=== PATIENT | female | born 1950 | race Caucasian/White ===

== ENCOUNTER → 2017-03-17 | Outpatient (CLI) | payer MEDICARE, BC ==
[~2017-03-17] MED LIST: CLARITIN-D 5 MG1 T12 PO; LIPITOR10 MG PO; MICROZIDE12.5 M1 PO; TOPROL XL25 MG PO; VANQUISH PO
== END | disposition home or self-care (01) ==
LOC: MAMMO 12:40
DX: Z12.31 Encounter for screening mammogram for malignant neoplasm of breast (principal)

== ENCOUNTER → 2017-07-14 | Outpatient (CLI) | payer MEDICARE, BC ==
[2017-07-14 07:47] LABS: BASO % 0.5 % (0.0-1.0); EOS # 0.5 10*3/uL (0.0-0.4); EOS % 7.8 % (1.0-4.0); HEMATOCRIT 40.1 % (37.0-47.0); HEMOGLOBIN 13.5 g/dl (12.0-16.0); LYMPH # 1.8 10*3/uL (1.3-4.4); LYMPH % 27.3 % (27.0-41.0); MEAN CELL VOLUME 94.6 fl (81.0-99.0); MEAN CORPUSCULAR HGB 31.8 pg (27.0-31.0); MEAN CORPUSCULAR HGB CONC 33.7 g/dl (33.0-37.0); MONO # 0.7 10*3/uL (0.1-1.0); MONO % 10.2 % (3.0-9.0); NEUT # 3.6 10*3/uL (2.3-7.9); PLATELET COUNT AUTOMATED 274 10*3/uL (130-400); RED BLOOD COUNT 4.24 10*6/uL (4.10-5.10); RED CELL DISTRI WIDTH 12.4 % (0-14.5); WHITE BLOOD COUNT 6.6 10*3/uL (4.8-10.8)
[2017-07-14 08:15] LABS: ALBUMIN 3.7 gm/dl (3.1-4.5); ALKALINE PHOSPHATASE 87 U/L (45-117); BUN 14 mg/dl (7-24); CHLORIDE 105 mmol/L (98-107); CHOLESTEROL 148 mg/dL (<200); HDL CHOLESTEROL 68 mg/dl (40-60); LDL CHOLESTEROL 63 mg/dL (9-159); POTASSIUM 3.5 mmol/L (3.5-5.1); SGOT/AST 19 IU/L (3-35); SGPT/ALT 20 U/L (12-78); SODIUM 140 mmol/L (136-145); T3 UPTAKE 32 % (31-39); TOTAL PROTEIN 7.8 gm/dL (6.4-8.2); TRIGLYCERIDES 87 mg/dl (<150); VLDL CHOLESTEROL 17 mg/dL (6-40)
== END | disposition home or self-care (01) ==
LOC: LAB 07:18
PROVIDERS: Internal Medicine
DX: I10 Essential (primary) hypertension (principal); E78.2 Mixed hyperlipidemia; E03.9 Hypothyroidism, unspecified; D51.0 Vitamin B12 deficiency anemia due to intrinsic factor deficiency

== ENCOUNTER 2017-12-17 11:47 | Inpatient (IN) | payer MEDICARE ==
[~2017-12-17] VITALS: Ht 167.6 cm; Wt 67.8 kg
[2017-12-17] VITALS (8 sets, daily range): BP systolic 130–171; BP diastolic 53–70
[2017-12-17] MEDS ORDERED: ASPIRIN81 M1 PO (11:52)
[2017-12-17] MEDS ORDERED: POTASSIUM CHLOR8 ME1 PO (11:53)
[2017-12-17 12:31] LABS: HEMATOCRIT 40.8 % (37.0-47.0); HEMOGLOBIN 14.2 g/dl (12.0-16.0); MEAN CELL VOLUME 90.9 fl (81.0-99.0); MEAN CORPUSCULAR HGB 31.6 pg (27.0-31.0); MEAN CORPUSCULAR HGB CONC 34.8 g/dl (33.0-37.0); MEAN PLATELET VOLUME 11.2 fl (9.6-12.3); PLATELET COUNT AUTOMATED 201 10*3/uL (130-400); RED BLOOD COUNT 4.49 10*6/uL (4.10-5.10); RED CELL DISTRI WIDTH 11.7 % (0-14.5); WHITE BLOOD COUNT 4.4 10*3/uL (4.8-10.8)
[2017-12-17 12:41] LABS: ACT PARTIAL THROMBO TIME 19.3 SECONDS (20.8-31.5); INTERNATIONAL NORM RATIO 0.9 (2.0-3.5)
[2017-12-17 12:42] LABS: ALBUMIN 3.6 gm/dl (3.1-4.5); ALKALINE PHOSPHATASE 69 U/L (45-117); BUN 16 mg/dl (7-24); CHLORIDE 100 mmol/L (98-107); CREATININE 0.83 mg/dL (0.55-1.02); LIPASE 228 U/L (73-393); POTASSIUM 3.1 mmol/L (3.5-5.1); SGOT/AST 32 IU/L (3-35); SGPT/ALT 27 U/L (12-78); SODIUM 136 mmol/L (136-145); TOTAL PROTEIN 7.8 gm/dL (6.4-8.2)
[2017-12-17 12:45] LABS: TROPONIN I < 0.015 ng/ml (<0.045)
[2017-12-17 12:45] LABS: ATYPICAL LYMPHS 3 % (0-0); BASOPHILS 1 % (0-1); PLATELET SUFFICIENCY NORMAL (NORMAL); TOTAL CELLS COUNTED 100 #CELLS
[2017-12-17 14:37] LABS: BILIRUBIN NEGATIVE (NEGATIVE); BLOOD NEGATIVE (NEGATIVE); CLARITY CLEAR (CLEAR); COLOR YELLOW (YELLOW); GLUCOSE NEGATIVE (NEGATIVE); KETONE 1+ (NEGATIVE); LEUKO ESTERASE NEGATIVE (NEGATIVE); NITRITE NEGATIVE (NEGATIVE); PH 6.5 (5.0-9.0); SPECIFIC GRAVITY <= 1.005 (1.005-1.030); UROBILINOGEN 0.2 E.U./dl (0.2-1.0)
[2017-12-17 14:57] LABS: BACTERIA TRACE
[2017-12-17 14:58] LABS: RBC 0-2 rbc/hpf (0-2)
[2017-12-17] MEDS ORDERED: SUMATRIPTAN5 MG NAS (16:43)
[2017-12-18] VITALS: BP 113/53
[2017-12-18 06:36] LABS: HEMATOCRIT 36.8 % (37.0-47.0); HEMOGLOBIN 12.6 g/dl (12.0-16.0); MEAN CELL VOLUME 93.9 fl (81.0-99.0); MEAN CORPUSCULAR HGB 32.1 pg (27.0-31.0); MEAN CORPUSCULAR HGB CONC 34.2 g/dl (33.0-37.0); MEAN PLATELET VOLUME 11.5 fl (9.6-12.3); PLATELET COUNT AUTOMATED 181 10*3/uL (130-400); RED BLOOD COUNT 3.92 10*6/uL (4.10-5.10); RED CELL DISTRI WIDTH 11.9 % (0-14.5); WHITE BLOOD COUNT 2.5 10*3/uL (4.8-10.8)
[2017-12-18 06:42] LABS: BUN 13 mg/dl (7-24); CHLORIDE 109 mmol/L (98-107); CHOLESTEROL 121 mg/dL (<200); CREATININE 0.81 mg/dL (0.55-1.02); PHOSPHOROUS 2.5 mg/dL (2.5-4.9); SODIUM 144 mmol/L (136-145); TRIGLYCERIDES 62 mg/dl (<150); VLDL CHOLESTEROL 12 mg/dL (6-40)
[2017-12-18 06:51] LABS: HDL CHOLESTEROL 41 mg/dl (40-60); LDL CHOLESTEROL 68 mg/dL (9-159); THYROID STIM HORMONE (HS) 0.608 uIU/ml (0.358-4.75)
[2017-12-18 07:06] LABS: POTASSIUM 4.4 mmol/L (3.5-5.1)
[2017-12-18 07:29] LABS: ATYPICAL LYMPHS 1 % (0-0); PLATELET SUFFICIENCY NORMAL (NORMAL); TOTAL CELLS COUNTED 100 #CELLS
[2017-12-18 08:00] VITALS: BP 122/59
[2017-12-18 12:00] VITALS: BP 126/78
[2017-12-18 16:00] VITALS: BP 113/61
[2017-12-18 20:00] VITALS: BP 119/57
[2017-12-19] VITALS: BP 126/60
[2017-12-19 06:22] LABS: BASO % 0.1 % (0.0-1.0); HEMATOCRIT 34.1 % (37.0-47.0); HEMOGLOBIN 11.1 g/dl (12.0-16.0); LYMPH % 8.7 % (27.0-41.0); MEAN CELL VOLUME 94.5 fl (81.0-99.0); MEAN CORPUSCULAR HGB 30.7 pg (27.0-31.0); MEAN CORPUSCULAR HGB CONC 32.6 g/dl (33.0-37.0); MEAN PLATELET VOLUME 11.7 fl (9.6-12.3); MONO # 0.7 10*3/uL (0.1-1.0); MONO % 5.4 % (3.0-9.0); NEUT # 10.2 10*3/uL (2.3-7.9); NEUT % 84.9 % (47.0-73.0); PLATELET COUNT AUTOMATED 218 10*3/uL (130-400); RED BLOOD COUNT 3.61 10*6/uL (4.10-5.10); RED CELL DISTRI WIDTH 12.1 % (0-14.5)
[2017-12-19 06:53] LABS: CHLORIDE 113 mmol/L (98-107); POTASSIUM 3.6 mmol/L (3.5-5.1); SODIUM 147 mmol/L (136-145)
[2017-12-19 07:00] LABS: ALBUMIN 2.9 gm/dl (3.1-4.5); ALKALINE PHOSPHATASE 55 U/L (45-117); BUN 10 mg/dl (7-24); CREATININE 0.64 mg/dL (0.55-1.02); SGOT/AST 20 IU/L (3-35); SGPT/ALT 20 U/L (12-78); TOTAL PROTEIN 6.2 gm/dL (6.4-8.2)
[2017-12-19 08:00] VITALS: BP 133/55
[2017-12-19 12:00] VITALS: BP 137/48
[2017-12-19] MEDS ORDERED: CEFUROXIME AXE500 MG PO (12:38)
[2017-12-19] MEDS ORDERED: PREDNISONE10 MG PO (12:38)
[2017-12-19] MEDS ORDERED: ZITHROMAX250 MG PO (12:38)
[2017-12-19] MEDS ORDERED: PROAIR HFA8.5 GM INH (12:38)
== END 2017-12-19 13:40 | disposition home or self-care (01) | DRG 194 ==
LOC: ED 11:47 → EDHOLD 15:13 → 5E 15:13
PROVIDERS: Emergency Medicine; Internal Medicine Nephrology
DX: J18.9 Pneumonia, unspecified organism (principal); E87.2 Acidosis; D72.819 Decreased white blood cell count, unspecified; R53.1 Weakness; E87.6 Hypokalemia; I10 Essential (primary) hypertension; E87.5 Hyperkalemia; R73.9 Hyperglycemia, unspecified; R53.81 Other malaise; Z90.710 Acquired absence of both cervix and uterus; Z87.891 Personal history of nicotine dependence; Z82.0 Family history of epilepsy and other diseases of the nervous system; Z82.49 Family history of ischemic heart disease and other diseases of the circulatory system; Z79.82 Long term (current) use of aspirin; Z79.899 Other long term (current) drug therapy

== ENCOUNTER → 2023-10-20 | Outpatient (CLI) | payer MEDICARE ==
[~2023-10-20] MED LIST changes: +ASPIRIN81 M1 PO; +CEFUROXIME AXE500 MG PO; +POTASSIUM CHLOR8 ME1 PO; +PREDNISONE10 MG PO; +PROAIR HFA8.5 GM INH; +SUMATRIPTAN5 MG NAS; +ZITHROMAX250 MG PO
== END | disposition home or self-care (01) ==
LOC: CARD 03:52
PROVIDERS: ATTEND Internal Medicine
DX: I34.0 Nonrheumatic mitral (valve) insufficiency (principal)

== ENCOUNTER → 2023-10-27 | Outpatient (CLI) | payer MEDICARE | END | disposition home or self-care (01) | LOC: US 10-23 15:00 | PROVIDERS: ATTEND Internal Medicine | DX: I65.23 Occlusion and stenosis of bilateral carotid arteries (principal) ==

== ENCOUNTER → 2024-12-01 | Outpatient (CLI) | payer MEDICARE | END | disposition home or self-care (01) | LOC: CARD 11-28 10:30 | PROVIDERS: ATTEND Internal Medicine | DX: I05.9 Rheumatic mitral valve disease, unspecified (principal); I10 Essential (primary) hypertension; E55.9 Vitamin D deficiency, unspecified; E03.9 Hypothyroidism, unspecified; G43.909 Migraine, unspecified, not intractable, without status migrainosus; F41.9 Anxiety disorder, unspecified; Z79.899 Other long term (current) drug therapy ==